=== PATIENT | male | born 1940 | race Caucasian/White ===

== ENCOUNTER 2019-04-02 11:55 | Day surgery (SDC) | payer MEDICARE, MEDICAID ==
[~2019-04-02] VITALS: Ht 170.2 cm; Wt 99.3 kg
[2019-04-02] VITALS (11 sets, daily range): BP systolic 122–145; BP diastolic 82–99
--- NOTE | 2019-04-02 12:15 | NUR ---
ED Nurse Note: PT WALKED IN FROM HOME DUE TO KIDNEY STONE. STATES RLQ ABD PAIN FOR A COUPLE OF DAYS. PT WAS SEEN AT [facility] YESTERDAY AND CT WAS DONE WHICH REVEALS A STONE THAT DROPPED IN HIS URETER. SENT BY DR MELENDEZ FOR ED EVAL AND STENT PLACEMENT. AAO X4. AMBULATORY WITH NON LABORED BREATHING.
--- NOTE | 2019-04-02 12:28 | NUR ---
HAND-OFF: Report given to KAYCE FRANK.
--- NOTE | 2019-04-02 12:30 | NUR ---
ED Nurse Note: Pt resting comfortably in bed. Pt able to urinate. Urine specimen sent to lab. Will carry out ERMD orders and continue to monitor.
--- NOTE | 2019-04-02 12:47 | Emergency Room Report ---
History of Present Illness General Chief Complaint: General Complaint Source: Patient Present Illness HPI Patient presents with complaints of right-sided kidney stone approximately 9 mm Patient reports that on a CAT scan Yesterday this was evidence patient started having increased pain Contacted his urologist and presents to the ER Patient here denies any chest pain denies any vomiting His right flank with some radiation towards the lower abdomen 8 out of 10 Allergies: Coded Allergies: No Known Allergies (Unverified , 04/02/19) Patient History Past Medical History: see triage record Reviewed Nursing Documentation: PMH: Agreed; PSxH: Agreed Review of Systems All Other Systems: negative except mentioned in HPI Physical Exam Vital Signs Date Time Temp Pulse Resp B/P (MAP) Pulse Ox O2 Delivery O2 Flow Rate FiO2 04/02/19 12:05 98.4 98 20 126/75 (92) 92 Room Air Sp02 EP Interpretation: reviewed, normal General Appearance: mild distress - In mild pain Head: normocephalic, atraumatic Eyes: bilateral eye PERRL, bilateral eye EOMI ENT: hearing grossly normal, EOM grossly intact, no angioedema Neck: supple Respiratory: lungs clear, no respiratory distress, no retraction Cardiovascular #1: regular rate, rhythm Gastrointestinal: non tender, soft Genitourinary: no CVA tenderness Musculoskeletal: normal inspection Neurologic: alert, oriented x3 Skin: no rash Lymphatic: no adenopathy Medical Decision Making Diagnostic Impression: Primary Impression: Obstructive uropathy ER Course Given the patient's history exam and presentation given my discussion with the patient's urologist there is evidence of 9 mm obstructive Renal stone on the right side Patient has continued discomfort and requires further acute intervention Patient taken emergently to the OR for further stent placement Labs Test 04/02/19 12:20 04/02/19 12:50 Urine Color Yellow Urine Appearance Clear Urine pH 5.0 (4.5-8.0) Urine Specific [place] 1.010 (1.005-1.035) Urine Protein 1+ (NEGATIVE) Urine Glucose (UA) Negative (NEGATIVE) Urine Ketones Negative (NEGATIVE) Urine Blood 5+ (NEGATIVE) Urine Nitrite Negative (NEGATIVE) Urine Bilirubin Negative (NEGATIVE) Urine Urobilinogen Normal MG/DL (0.0-1.0) Urine Leukocyte Esterase 1+ (NEGATIVE) Urine RBC 2-4 /HPF (0 - 0) Urine WBC 0-2 /HPF (0 - 0) Urine Squamous Epithelial Cells Occasional /LPF Urine Bacteria Occasional /HPF (NONE) White Blood Count 6.1 K/UL (4.8-10.8) Red Blood Count 4.72 M/UL (4.70-6.10) Hemoglobin 15.0 G/DL (14.2-18.0) Hematocrit 43.5 % (42.0-52.0) Mean Corpuscular Volume 92 FL (80-99) Mean Corpuscular Hemoglobin 31.8 PG (27.0-31.0) Mean Corpuscular Hemoglobin Concent 34.6 G/DL (32.0-36.0) Red Cell Distribution Width 11.1 % (11.6-14.8) Platelet Count 142 K/UL (150-450) Mean Platelet Volume 8.8 FL (6.5-10.1) Neutrophils (%) (Auto) 67.6 % (45.0-75.0) Lymphocytes (%) (Auto) 17.4 % (20.0-45.0) Monocytes (%) (Auto) 13.8 % (1.0-10.0) Eosinophils (%) (Auto) 0.6 % (0.0-3.0) Basophils (%) (Auto) 0.6 % (0.0-2.0) Prothrombin Time 11.1 SEC (9.30-11.50) Prothromb Time International Ratio 1.0 (0.9-1.1) Activated Partial Thromboplast Time 28 SEC (23-33) Sodium Level 137 MMOL/L (136-145) Potassium Level 3.8 MMOL/L (3.5-5.1) Chloride Level 103 MMOL/L (98-107) Carbon Dioxide Level 23 MMOL/L (21-32) Anion Gap 12 mmol/L (5-15) Blood Urea Nitrogen 17 mg/dL (7-18) Creatinine 1.2 MG/DL (0.55-1.30) Estimat Glomerular Filtration Rate mL/min (>60) Glucose Level 114 MG/DL (74-106) Calcium Level 8.8 MG/DL (8.5-10.1) Total Bilirubin 1.1 MG/DL (0.2-1.0) Direct Bilirubin 0.2 MG/DL (0.0-0.3) Aspartate Amino Transf (AST/SGOT) 24 U/L (15-37) Alanine Aminotransferase (ALT/SGPT) 30 U/L (12-78) Alkaline Phosphatase 83 U/L (46-116) Total Protein 6.7 G/DL (6.4-8.2) Albumin 3.3 G/DL (3.4-5.0) Globulin 3.4 g/dL Albumin/Globulin Ratio 1.0 (1.0-2.7) Lipase 103 U/L (73-393) Rhythm Strip Diag. Results EP Interpretation: yes Rate: 77 Rhythm: NSR, no PVC's, no ectopy Last Vital Signs Date Time Temp Pulse Resp B/P (MAP) Pulse Ox O2 Delivery O2 Flow Rate FiO2 04/02/19 12:15 98.4 94 22 122/88 94 Room Air Status: improved Disposition: HOME, SELF-CARE Condition: Improved Juan R Bingham DO Apr 02, 2019 12:47
[2019-04-02 12:55] LABS: APPEARANCE,URINE CLEAR; BILIRUBIN, URINE NEGATIVE (NEGATIVE); COLOR,URINE YELLOW; GLUCOSE, URINE (UA) NEGATIVE (NEGATIVE); KETONES,URINE NEGATIVE (NEGATIVE); PROTEIN,URINE 1+ (NEGATIVE)
[2019-04-02 12:56] LABS: LEUKOCYTE ESTERASE ,URINE 1+ (NEGATIVE); NITRITE,URINE NEGATIVE (NEGATIVE); UROBILINOGEN,URINE NORMAL MG/DL (0.0-1.0)
[2019-04-02 12:59] LABS: BASOPHILS % (AUTO) 0.6 % (0.0-2.0); EOSINOPHILS % (AUTO) 0.6 % (0.0-3.0); HEMATOCRIT 43.5 % (42.0-52.0); LYMPHOCYTES % (AUTO) 17.4 % (20.0-45.0); MEAN CORPUSCULAR VOLUME 92 FL (80-99); MONOCYTES % (AUTO) 13.8 % (1.0-10.0); NEUTROPHILS % (AUTO) 67.6 % (45.0-75.0); PLATELET COUNT 142 K/UL (150-450); RED BLOOD COUNT 4.72 M/UL (4.70-6.10); RED CELL DISTRIBUTION WIDTH 11.1 % (11.6-14.8); WHITE BLOOD COUNT 6.1 K/UL (4.8-10.8)
[2019-04-02 13:11] LABS: ANION GAP 12 mmol/L (5-15); BLOOD UREA NITROGEN 17 mg/dL (7-18); CALCIUM 8.8 MG/DL (8.5-10.1); CARBON DIOXIDE 23 MMOL/L (21-32); CHLORIDE 103 MMOL/L (98-107); CREATININE 1.2 MG/DL (0.55-1.30); POTASSIUM 3.8 MMOL/L (3.5-5.1); SODIUM 137 MMOL/L (136-145)
[2019-04-02 13:23] LABS: ALANINE AMINOTRANSFERASE 30 U/L (12-78); ALBUMIN 3.3 G/DL (3.4-5.0); ALKALINE PHOSPHATASE 83 U/L (46-116); ASPARTATE AMINO TRANSFERASE 24 U/L (15-37); BILIRUBIN,DIRECT 0.2 MG/DL (0.0-0.3); BILIRUBIN,TOTAL 1.1 MG/DL (0.2-1.0)
[2019-04-02] MEDS ORDERED: LR 1000ml 1,000 ML IVLG SCH (13:26)
[2019-04-02] MEDS ORDERED: oxyCODONE HCL/Acetaminophen 5/325mg ORAL PRN (13:30)
[2019-04-02] MEDS ORDERED: Midazolam 2mg/2ml Inj IVP PRN (13:30)
[2019-04-02] MEDS ORDERED: Metoclopramide 10mg/2ml Inj IVP PRN (13:30)
[2019-04-02] MEDS ORDERED: Ketorolac 30mg Inj IV PRN ×2 (13:30)
[2019-04-02] MEDS ORDERED: Labetalol 5mg/ml 20ml vial IV PRN (13:30)
[2019-04-02] MEDS ORDERED: Acetaminophen (Non formulary) 100 ML IV ONE (13:30)
[2019-04-02] MEDS ORDERED: DiphenhydrAMINE 50mg/ml Inj IVP PRN (13:30)
[2019-04-02] MEDS ORDERED: Meperidine 50mg/ml Inj(FOR RIGORS ONLY) IVP PRN (13:30)
[2019-04-02] MEDS ORDERED: Hydromorphone 0.5mg/0.5ml inj IVP PRN (13:30)
[2019-04-02] MEDS ORDERED: HYDROcodone/Acetamin 7.5/325 tab ORAL PRN (13:30)
[2019-04-02] MEDS ORDERED: fentaNYL 100 mcg/2 mL IV PRN (13:30)
[2019-04-02] MEDS ORDERED: Atropine Sulfate 0.4mg/ml inj IVP PRN (13:30)
[2019-04-02] MEDS ORDERED: LORazepam Inj 2mg/ml 1ml IV PRN (13:30)
[2019-04-02] MEDS ORDERED: HYDROcodone/Acetamin 5/325 tab ORAL PRN ×2 (13:30→16:45)
--- NOTE | 2019-04-02 13:32 | Anethesia Preoperative Eval ---
Anesthesia Pre-op PMH/ROS General Date of Evaluation: Apr 02, 2019 Time of Evaluation: 15:27 Anesthesiologist: So ASA Score: ASA 3 Mallampati Score Class I : Soft palate, uvula, fauces, pillars visible Class II: Soft palate, uvula, fauces visible Class III: Soft palate, base of uvula visible Class IV: Only hard plate visible Mallampati Classification: Class III Surgeon: Antonia Diagnosis: Abd Pain Surgical Procedure: Cystoscopy, Stent Placement Anesthesia History: none Family History: no anesthesia problems Allergies: Coded Allergies: No Known Allergies (Unverified , 04/02/19) Medications: see eMAR Patient NPO?: Yes Past Medical History Cardiovascular: Reports: HTN Gastrointestinal/Genitourinary: Reports: other - Renolithiasis Hematology/Immune: Reports: other - Lymphoma Anesthesia Pre-op Phys. Exam Physician Exam Last Vital Signs Date Time Temp Pulse Resp B/P (MAP) Pulse Ox O2 Delivery O2 Flow Rate FiO2 04/02/19 12:15 98.4 94 22 122/88 94 Room Air Constitutional: NAD Neurologic: CN 2-12 intact Cardiovascular: RRR Respiratory: CTA Gastrointestinal: S/NT/ND Airway Exam Mallampati Score: Class III MO: limited ROM: limited Teeth: missing, intact Anesthesia Pre-op A/P Labs Hematology Test 04/02/19 12:50 White Blood Count 6.1 K/UL (4.8-10.8) Red Blood Count 4.72 M/UL (4.70-6.10) Hemoglobin 15.0 G/DL (14.2-18.0) Hematocrit 43.5 % (42.0-52.0) Mean Corpuscular Volume 92 FL (80-99) Mean Corpuscular Hemoglobin 31.8 PG (27.0-31.0) H Mean Corpuscular Hemoglobin Concent 34.6 G/DL (32.0-36.0) Red Cell Distribution Width 11.1 % (11.6-14.8) L Platelet Count 142 K/UL (150-450) L Mean Platelet Volume 8.8 FL (6.5-10.1) Neutrophils (%) (Auto) 67.6 % (45.0-75.0) Lymphocytes (%) (Auto) 17.4 % (20.0-45.0) L Monocytes (%) (Auto) 13.8 % (1.0-10.0) H Eosinophils (%) (Auto) 0.6 % (0.0-3.0) Basophils (%) (Auto) 0.6 % (0.0-2.0) Coagulation Test 04/02/19 12:50 Prothrombin Time 11.1 SEC (9.30-11.50) Prothromb Time International Ratio 1.0 (0.9-1.1) Activated Partial Thromboplast Time 28 SEC (23-33) Chemistry Test 04/02/19 12:50 Sodium Level 137 MMOL/L (136-145) Potassium Level 3.8 MMOL/L (3.5-5.1) Chloride Level 103 MMOL/L (98-107) Carbon Dioxide Level 23 MMOL/L (21-32) Anion Gap 12 mmol/L (5-15) Blood Urea Nitrogen 17 mg/dL (7-18) Creatinine 1.2 MG/DL (0.55-1.30) Estimat Glomerular Filtration Rate mL/min (>60) Glucose Level 114 MG/DL (74-106) H Calcium Level 8.8 MG/DL (8.5-10.1) Total Bilirubin 1.1 MG/DL (0.2-1.0) H Direct Bilirubin 0.2 MG/DL (0.0-0.3) Aspartate Amino Transf (AST/SGOT) 24 U/L (15-37) Alanine Aminotransferase (ALT/SGPT) 30 U/L (12-78) Alkaline Phosphatase 83 U/L (46-116) Total Protein 6.7 G/DL (6.4-8.2) Albumin 3.3 G/DL (3.4-5.0) L Globulin 3.4 g/dL Albumin/Globulin Ratio 1.0 (1.0-2.7) Lipase 103 U/L (73-393) Risk Assessment & Plan Assessment: ASA 3 Plan: GA, SED, GlideScope Go Status Change Before Surgery: No Pre-Antibiotics Dru grams Ancef IV Given Within 1 Hr of Incision: Yes Time Given: 16:46 Cesar Rizzo MD Apr 02, 2019 13:32
[2019-04-02] MEDS ORDERED: Propofol 200mg/20ml IV ONE ×2 (13:33→16:22)
[2019-04-02] MEDS ORDERED: Dexamethasone 4mg/ml vial ONE ×2 (13:33→16:22)
[2019-04-02] MEDS ORDERED: Sodium Chloride 10ml vial INJ ONE ×2 (13:33→16:22)
[2019-04-02] MEDS ORDERED: Lidocaine 1% MPF 10mg/ml 5ml ONE ×2 (13:33→16:22)
[2019-04-02] MEDS ORDERED: Midazolam 2mg/2ml Inj ONE ×2 (13:39→16:22)
[2019-04-02] MEDS ORDERED: fentaNYL 100 mcg/2 mL IV ONE ×2 (13:39→16:22)
--- NOTE | 2019-04-02 15:15 | NUR ---
ED Nurse Note: Pt taken to OR at this time.
--- NOTE | 2019-04-02 15:15 | NUR ---
ED Nurse Note: Pt belongings list completed, belongings taken home by pt . Pt placed in only hospital gown. Pt at bedside.
--- NOTE | 2019-04-02 15:24 | NUR ---
Note chiki in EDM - 04/02/19 at 1556 by CELY ED Nurse Note: Pt taken for surgery at this time. Pt placed in only hospital gown. Pt at bedside.
[2019-04-02] MEDS ORDERED: Iothalamate Meglumine 60% 30ML INJ ONE (16:20)
[2019-04-02] MEDS ORDERED: NS Irrig 1000ml ONE (16:27)
[2019-04-02] MEDS ORDERED: NS Irrig 2000ml IRRIG ONE (16:27)
[2019-04-02] MEDS ORDERED: Sterile Water Irrig 1000ml IRRIG ONE (16:27)
[2019-04-02] MEDS ORDERED: LR 1000ml ONE (16:27)
[2019-04-02] MEDS ORDERED: Rocuronium Bromide 50mg/5ml Inj IV ONE (16:36)
--- NOTE | 2019-04-02 16:41 | Immediate Post-Op Evaluation ---
Immediate Post-Op Evalulation Immediate Post-Op Evalulation Procedure: Cystoscopy, Stent Placement Date of Evaluation: Apr 02, 2019 Time of Evaluation: 17:57 IV Fluids: 800 LR Blood Products: 0 Estimated Blood Loss: 10 Urinary Output: 75 Blood Pressure Systolic: 131 Blood Pressure Diastolic: 85 Pulse Rate: 101 Respiratory Rate: 16 O2 Sat by Pulse Oximetry: 98 Temperature (Fahrenheit): 98.6 Pain Score (1-10): 2 Nausea: No Vomiting: No Complications 0 Patient Status: awake, reacts, patent, none Hydration Status: adequate Dru Grams Ancef IV Given Within 1 Hr of Incision: Yes Time Given: 16:46 Cesar Rizzo MD Apr 02, 2019 16:41
--- NOTE | 2019-04-02 16:43 | Pre-Procedure Note/Attestation ---
Pre-Procedure Note/Attestation Complete Prior to Procedure Planned Procedure: right Procedure Narrative: cystoscopy [id number] pylogram stent placement Indications for Procedure Pre-Operative Diagnosis: right ureteral stone Attestation I attest that I discussed the nature of the procedure; its benefits; risks and complications; and alternatives (and the risks and benefits of such alternatives ), prior to the procedure, with the patient (or the patient's legal call center representative). I attest that, if there was a reasonable possibility of needing a blood transfusion, the patient (or the patient's legal call center representative) was given the [facility] Services standardized written summary, pursuant to the Júnior Jovan Blood Safety Act ([place] Health and Safety Code # 1645, as amended). I attest that I re-evaluated the patient just prior to the surgery and that there has been no change in the patient's H&P, except as documented below: Santhosh Knight MD Apr 02, 2019 16:43
[2019-04-02] MEDS ORDERED: HYDROmorphone 1mg/ml Carpuject SUBQ PRN (16:45)
[2019-04-02] MEDS ORDERED: D5 1/2NS 1,000 ML IV SCH (16:45)
[2019-04-02] MEDS ORDERED: Tylenol #3 tab (300mg/30mg) ORAL PRN (16:45)
[2019-04-02] MEDS ORDERED: Ketorolac 30mg Inj ONE (17:22)
--- NOTE | 2019-04-02 17:27 | Brief Operative Note ---
Immediate Post Operative Note Operative Note Pre-op Diagnosis: right ureteral stone Procedure: RIRS right RPG Stent Placement right Post-op Diagnosis: same Post-op Diagnosis: same as pre-op Surgeon: Huy Knight Anesthesia: general Specimen: yes Complications: none Condition: stable Fluids: 500 Estimated Blood Loss: minimal Implant(s) used?: No Santhosh Knight MD Apr 02, 2019 17:27
--- NOTE | 2019-04-02 17:34 | 48 Hour Post Anesthesia Eval ---
Post Anesthesia Evaluation Procedure: Cystoscopy, Stent Placement Date of Evaluation: Apr 02, 2019 Time of Evaluation: 19:58 Blood Pressure Systolic: 146 0: 98 Pulse Rate: 89 Respiratory Rate: 18 Temperature (Fahrenheit): 98.4 O2 Sat by Pulse Oximetry: 97 Airway: patent Nausea: No Vomiting: No Pain Intensity: 2 Hydration Status: adequate Cardiopulmonary Status: Stable Mental Status/LOC: patient returned to baseline Follow-up Care/Observations: 0 Post-Anesthesia Complications: 0 Follow-up care needed: ready to discharge Cesar Rizzo MD Apr 02, 2019 17:33
--- NOTE | 2019-04-02 17:36 | Diagnostic Imaging Report ---
Indication: Chest pain Technique: One view of the chest Comparison: none Findings: The heart is somewhat enlarged. The aorta is tortuous and ectatic. The lungs and pleural spaces are clear. Impression: Cardiomegaly Ectatic aorta, aneurysm not excludable. Correlate with clinical history, consider CT as clinically indicated
--- NOTE | 2019-04-02 18:40 | NUR ---
REMOVED DAVIS ORDERED, ALL NEEDS ATTENDED.
--- NOTE | 2019-04-02 18:46 | NUR ---
PATIENT WAS ABLE TO URINATE AT THIS TIME, ALL NEEDS ATTENDED.
--- NOTE | 2019-04-03 10:55 | Diagnostic Imaging Report ---
INDICATION: Pain, intraoperative TECHNIQUE: Intraoperative imaging Fluoroscopy time: 43.2 seconds Total dose: 0.82748 mGym2 Total number of images: 7 COMPARISON: None FINDINGS: Intraoperative imaging demonstrates opacification of the right ureter, subsequently placement of a right nephroureteral stent IMPRESSION: Intraoperative imaging, as described
--- NOTE | 2019-04-03 15:24 | Cardiology Report ---
APPROVED REPORT EKG Measurement Heart [id number] Sinus tachycardia Left axis deviation Abnormal ECG
--- NOTE | 2019-04-05 19:30 | Operative Note - Dictated ---
DATE OF OPERATION: 04/02/2019 PREOPERATIVE DIAGNOSIS: Obstructing mid right ureteral stone. POSTOPERATIVE DIAGNOSIS: Obstructing mid right ureteral stone. OPERATIONS: 1. Cystoscopy. 2. Flexible ureteroscopy. 3. Double-J stent placement. 4. Retrograde pyelogram. OPERATED BY: Santhosh Knight M.D. ANESTHESIA: General. FINDINGS: Obstructed 9 mm stone in the mid right ureter. INDICATIONS FOR SURGERY: The patient developed acute renal colic. CT scan showed a 9 mm obstructing mid right ureteral stone. Treatment options were explained to him in great length including all potential complications. He signed a consent. PROCEDURE IN DETAIL: He was brought to the operating room and placed in lithotomy position, prepped and draped in standard fashion. Under general anesthesia, cystoscope was introduced into the bladder. Right ureter was cannulated. Retrograde pyelogram showed obstructing mid ureteral stone. Flexible ureteroscope was introduced. But due to the small size of the ureter, there was difficulty to insert the scope all the way to the mid ureter. Procedure was terminated by placement of double-J stent 26 x 6 and Clinotn catheter. The patient tolerated the procedure well. He received 10 mg of Lasix. No evidence of complications. Sponge count and instrument count were correct. Santhosh Knight M.D. DR: STACY JOB#: [id number] CC:
== END 2019-04-02 19:28 | disposition home or self-care (01) ==
LOC: EMR 13:20 → EDBEDREQ 13:34 → EDBEDREQSVC 14:01 → EDBEDREQ 14:02 → SUR 14:17
DX: N20.1 Calculus of ureter (principal); R00.0 Tachycardia, unspecified; I10 Essential (primary) hypertension; Z85.72 Personal history of non-Hodgkin lymphomas
CPT/HCPCS: 36415; 52332; 71045; 74420; 76000; 80053; 81003; 82248; 83690; 85025; 85610; 85730; 93005; 99284; J0690; J1100; J1885; J1940; J2250; J2405; J2704; J3010; J7120; Q9961; 94003; 94150

== ENCOUNTER 2019-05-22 08:05 | Day surgery (SDC) | payer MEDICARE, MEDICAID ==
[~2019-05-22] VITALS: Ht 172.7 cm; Wt 96.6 kg
[2019-05-22] VITALS (10 sets, daily range): BP systolic 114–139; BP diastolic 67–97
--- NOTE | 2019-05-22 07:47 | Pre-Procedure Note/Attestation ---
Pre-Procedure Note/Attestation Complete Prior to Procedure Planned Procedure: right Procedure Narrative: ESWL RIRS Stent change right kidney Indications for Procedure Pre-Operative Diagnosis: right ureteral stone Attestation I attest that I discussed the nature of the procedure; its benefits; risks and complications; and alternatives (and the risks and benefits of such alternatives ), prior to the procedure, with the patient (or the patient's legal front office representative). I attest that, if there was a reasonable possibility of needing a blood transfusion, the patient (or the patient's legal front office representative) was given the [facility] standardized written summary, pursuant to the Júnior Jovan Blood Safety Act ([place] Health and Safety Code # 1645, as amended). I attest that I re-evaluated the patient just prior to the surgery and that there has been no change in the patient's H&P, except as documented below: Santhosh Knight MD May 22, 2019 07:47
[~2019-05-22 08:05] MED LIST: ASPIR 8181 MG ORAL; ATACAND HCT 161 EACH ORAL; DEXILANT60 MG ORAL; ceFAZolin sod 1 GM in NS 55 ML IVPB ONE
[2019-05-22] MEDS ORDERED: Lidocaine 1% MPF 10mg/ml 5ml ONE (10:42)
[2019-05-22] MEDS ORDERED: Sodium Chloride 10ml vial INJ ONE (10:42)
[2019-05-22] MEDS ORDERED: LR 1000ml 1,000 ML IVLG SCH (10:43)
[2019-05-22] MEDS ORDERED: Ketorolac 30mg Inj IV PRN ×2 (10:45)
[2019-05-22] MEDS ORDERED: LORazepam Inj 2mg/ml 1ml IV PRN (10:45)
[2019-05-22] MEDS ORDERED: HYDROcodone/Acetamin 5/325 tab ORAL PRN ×2 (10:45→13:00)
[2019-05-22] MEDS ORDERED: Metoclopramide 10mg/2ml Inj IVP PRN (10:45)
[2019-05-22] MEDS ORDERED: Atropine Sulfate 0.4mg/ml inj IVP PRN (10:45)
[2019-05-22] MEDS ORDERED: Hydromorphone 0.5mg/0.5ml inj IVP PRN (10:45)
[2019-05-22] MEDS ORDERED: Meperidine 25mg/0.5ml Inj (FOR RIGORS ONLY) IV PRN (10:45)
[2019-05-22] MEDS ORDERED: Labetalol 5mg/ml 20ml vial IV PRN (10:45)
[2019-05-22] MEDS ORDERED: DiphenhydrAMINE 50mg/ml Inj IVP PRN (10:45)
[2019-05-22] MEDS ORDERED: fentaNYL 100 mcg/2 mL IV PRN (10:45)
[2019-05-22] MEDS ORDERED: Midazolam 2mg/2ml Inj IVP PRN (10:45)
[2019-05-22] MEDS ORDERED: oxyCODONE HCL/Acetaminophen 5/325mg ORAL PRN (10:45)
[2019-05-22] MEDS ORDERED: HYDROcodone/Acetamin 7.5/325 tab ORAL PRN (10:45)
--- NOTE | 2019-05-22 10:50 | Anethesia Preoperative Eval ---
Anesthesia Pre-op PMH/ROS General Date of Evaluation: May 22, 2019 Time of Evaluation: 11:21 Anesthesiologist: So ASA Score: ASA 3 Mallampati Score Class I : Soft palate, uvula, fauces, pillars visible Class II: Soft palate, uvula, fauces visible Class III: Soft palate, base of uvula visible Class IV: Only hard plate visible Mallampati Classification: Class III Surgeon: Antonia Diagnosis: Right Hydronephrosis Surgical Procedure: ESWL, R Intrarenal SX, Stent Anesthesia History: none Family History: no anesthesia problems Allergies: Coded Allergies: No Known Allergies (Unverified , 04/02/19) Medications: see eMAR Patient NPO?: Yes Past Medical History Cardiovascular: Reports: HTN, other - HL Gastrointestinal/Genitourinary: Reports: GERD HEENT: Reports: cataract (L), cataract (R) Hematology/Immune: Reports: other - Lymphoma Other: obesity - BMI 33 PSxH Narrative: Cholecystectomy Anesthesia Pre-op Phys. Exam Physician Exam Last Vital Signs Date Time Temp Pulse Resp B/P (MAP) Pulse Ox O2 Delivery O2 Flow Rate FiO2 05/22/19 08:37 97.2 71 20 114/67 96 Room Air Constitutional: NAD Neurologic: CN 2-12 intact Cardiovascular: RRR Respiratory: CTA Gastrointestinal: S/NT/ND Airway Exam Mallampati Score: Class III MO: limited ROM: limited Teeth: missing, intact Anesthesia Pre-op A/P Risk Assessment & Plan Assessment: ASA 3 Plan: GA, SED, GlideScope Go Status Change Before Surgery: No Pre-Antibiotics Dru Grams Ancef IV Given Within 1 Hr of Incision: Yes Time Given: 11:31 Cesar Rizzo MD May 22, 2019 10:50
--- NOTE | 2019-05-22 10:51 | 48 Hour Post Anesthesia Eval ---
Post Anesthesia Evaluation Procedure: ESWL, R Intrarenal SX, Stent Date of Evaluation: May 22, 2019 Time of Evaluation: 15:34 Blood Pressure Systolic: 132 0: 94 Pulse Rate: 74 Respiratory Rate: 18 Temperature (Fahrenheit): 98.4 O2 Sat by Pulse Oximetry: 99 Airway: patent Nausea: No Vomiting: No Pain Intensity: 1 Hydration Status: adequate Cardiopulmonary Status: Stable Mental Status/LOC: patient returned to baseline Follow-up Care/Observations: 0 Post-Anesthesia Complications: 0 Follow-up care needed: ready to discharge Cesar Rizzo MD May 22, 2019 10:51
--- NOTE | 2019-05-22 10:51 | Immediate Post-Op Evaluation ---
Immediate Post-Op Evalulation Immediate Post-Op Evalulation Procedure: ESWL, R Intrarenal SX, Stent Date of Evaluation: May 22, 2019 Time of Evaluation: 13:24 IV Fluids: 1400 LR Blood Products: 0 Estimated Blood Loss: 25 Urinary Output: 200 Blood Pressure Systolic: 134 Blood Pressure Diastolic: 97 Pulse Rate: 72 Respiratory Rate: 16 O2 Sat by Pulse Oximetry: 100 Temperature (Fahrenheit): 98.4 Pain Score (1-10): 2 Nausea: No Vomiting: No Complications 0 Patient Status: awake, reacts, patent, extubated, none Hydration Status: adequate Dru Grams Ancef IV Given Within 1 Hr of Incision: Yes Time Given: 11:31 Cesar Rizzo MD May 22, 2019 10:51
[2019-05-22] MEDS ORDERED: Dexamethasone 4mg/ml vial ONE (10:52)
[2019-05-22] MEDS ORDERED: Midazolam 2mg/2ml Inj ONE (11:01)
[2019-05-22] MEDS ORDERED: Iothalamate Meglumine 60% 50ML INJ ONE (11:23)
[2019-05-22] MEDS ORDERED: Rocuronium Bromide 50mg/5ml Inj IV ONE (11:30)
[2019-05-22] MEDS ORDERED: Propofol 200mg/20ml IV ONE (11:30)
[2019-05-22] MEDS ORDERED: Neostigmine 1mg/ml 10ml Inj ONE (11:30)
[2019-05-22] MEDS ORDERED: Sterile Water Irrig 1000ml IRRIG ONE (11:30)
[2019-05-22] MEDS ORDERED: NS Irrig 4000ml IRRIG ONE (11:30)
[2019-05-22] MEDS ORDERED: LR 1000ml ONE ×2 (11:30)
[2019-05-22] MEDS ORDERED: NS Irrig 1000ml ONE (11:30)
[2019-05-22] MEDS ORDERED: Glycopyrrolate 0.2mg/ml 1ml Vial ONE (11:30)
[2019-05-22] MEDS ORDERED: HYDROmorphone 1mg/ml Carpuject SUBQ PRN (13:00)
[2019-05-22] MEDS ORDERED: Tylenol #3 tab (300mg/30mg) ORAL PRN (13:00)
--- NOTE | 2019-05-22 13:00 | Brief Operative Note ---
Immediate Post Operative Note Operative Note Pre-op Diagnosis: right ureteral stone Procedure: eswl rirs stent removal stent placement rpg Post-op Diagnosis: same Post-op Diagnosis: same as pre-op Surgeon: Huy Knight Anesthesia: general Specimen: yes Complications: none Condition: stable Fluids: 1000 Estimated Blood Loss: minimal Implant(s) used?: No Santhosh Knight MD May 22, 2019 13:00
[2019-05-22] MEDS ORDERED: D5 1/2NS 1,000 ML IV SCH (17:00)
--- NOTE | 2019-05-24 19:01 | Operative Note - Dictated ---
DATE OF OPERATION: 05/22/2019 PREOPERATIVE DIAGNOSES: 1. Retained stone in the right ureter. 2. Retained double-J stent. POSTOPERATIVE DIAGNOSES: 1. Retained stone in the right ureter. 2. Retained double-J stent. OPERATIONS: 1. Cystoscopy. 2. Retrograde intrarenal surgery with laser lithotripsy of the mid right ureteral stone and extracorporeal shock wave lithotripsy. 3. Stent removal and stent placement. 4. Retrograde pyelogram on the right. CIVIL ENGINEERING MANAGER: Santhosh Knight M.D. ANESTHESIA: General. FINDINGS: Large stone in the mid left ureter. INDICATIONS FOR SURGERY: The patient had renal colic, had a stent placed previously and is here for second procedure with stone removal, stent change, and extracorporeal shock wave lithotripsy. He understands the nature of the procedure as well as all potential complications. He signed a consent. DESCRIPTION OF SURGERY: He was brought to the operating room, placed in lithotomy position. Prepped and draped in standard fashion. Under general anesthesia, cystoscope was introduced. The old stent was grasped and removed. Guidewire was placed into the right ureter followed by semi-rigid ureteroscope. Stones found in right ureter. Using 360 micron fiber, the stone was fragmented into small pieces and removed for pathologic examination with Nitinol basket. After that a flexible ureteroscope was introduced into the kidney. Small stone was found in the kidney, treated with extracorporeal shock wave lithotripsy. After the procedures, no stones were left in the kidney or ureter. The rest of the stones from the bladder were evacuated with the [facility] evacuator. A double-J stent, Turkmen was placed and left indwelling. The patient tolerated procedure well. No evidence of complications. Santhosh Knight M.D. DR: Jose Alejandro JOB#: [id number] CC:
== END 2019-05-22 14:50 | disposition home or self-care (01) ==
LOC: SUR 08:05
DX: N20.1 Calculus of ureter (principal); N20.0 Calculus of kidney; I10 Essential (primary) hypertension; K21.9 Gastro-esophageal reflux disease without esophagitis; Z90.49 Acquired absence of other specified parts of digestive tract; E66.9 Obesity, unspecified; Z68.33 Body mass index [BMI] 33.0-33.9, adult
CPT/HCPCS: 52356; J0690; J1100; J1940; J2250; J2405; J2704; J2710; J7120; 94003; 94150